=== PATIENT | male | born 1975 | race Caucasian/White ===

== ENCOUNTER 2021-10-02 05:32 | Inpatient (IN) | payer OTHER ==
[2021-10-02] MEDS ORDERED: Morphine 4 MG/ML VIAL ONE (06:09)
[2021-10-02 06:19] LABS: #Eosinphils 0.2 thou/uL (0.0-0.7); #Lymphocytes 1.4 thou/uL (1.20-3.40); #Monocytes 1.5 thou/uL (0.11-0.59); #Neutrophils 8.3 thou/uL (1.40-6.50); %Basophils 0.4 % (0.0-1.0); %Eosinophils 1.8 % (0.0-10.0); %Lymphocytes 12.4 % (21.0-51.0); %Monocytes 13.1 % (0.0-10.0); %Neutrophils 72.3 % (42.0-75.0); Hemoglobin 14.1 g/dL (14.0-18.0); Mean Corpuscular HGB CONC 33.2 g/dL (32.0-36.0); Mean Corpuscular Hemoglobin 30.9 pg (27.0-31.0); Mean Corpuscular Volume 93.2 fL (78.0-98.0); Platelet Count 212 thou/uL (130-400); Red Blood Cell (RBC) Count 4.57 mill/uL (4.70-6.10); White Blood Cell (WBC) Count 11.5 thou/uL (4.8-10.8)
[2021-10-02 06:54] LABS: ALT (SGPT) 30 U/L (8-55); AST (SGOT) 23 U/L (5-34); Albumin 4.2 g/dL (3.5-5.0); Alkaline Phosphatase 57 U/L (40-110); Anion Gap 14 mmol/L (10-20); BUN (Urea Nitrogen) 23 mg/dL (8.9-20.6); Bilirubin, Total 1.4 mg/dL (0.2-1.2); CK (CPK) 168 U/L (30-200); Calc. Creatinine Clearance 0 mL/min (70-130); Calcium 9.1 mg/dL (7.8-10.44); Carbon Dioxide 22 mmol/L (22-29); Chloride 105 mmol/L (98-107); Estimated GFR 108; Globulin 3.8 g/dL (2.4-3.5); Glucose 98 mg/dL (70-105); Lipase 9 U/L (8-78); Potassium 3.8 mmol/L (3.5-5.1); Sodium 137 mmol/L (136-145)
[2021-10-02] MEDS ORDERED: Fentanyl 100 MCG/2 ML VIAL ONE (07:44)
[2021-10-02] MEDS ORDERED: Enoxaparin Sodium 80 MG/0.8 ML SYRINGE ONE (08:10)
[2021-10-02 09:50] LABS: Troponin I Less than 0.010 ng/mL (< 0.028)
[2021-10-02] MEDS ORDERED: Ondansetron PF 4 MG/2 ML Vial IVP PRN (10:55)
[2021-10-02] MEDS ORDERED: Ondansetron ODT 4 MG TAB PO PRN (10:55)
[2021-10-02] MEDS ORDERED: Enoxaparin Sodium 120 MG/0.8 ML SYRINGE SC SCH (11:15)
[2021-10-02] MEDS ORDERED: Ketorolac Tromethamine 30 MG/ML VIAL IVP PRN (11:41)
[2021-10-02] MEDS ORDERED: Ketorolac Tromethamine 30 MG/ML VIAL IVP SCH (11:45)
[2021-10-02 11:49] VITALS: BMI 38.3
[2021-10-02] MEDS ORDERED: Enoxaparin Sodium 80 MG/0.8 ML SYRINGE SC SCH (12:15)
[2021-10-02] MEDS ORDERED: Iopamidol-370 76% 500 ML 1 ML ONE (12:51)
[2021-10-02 13:16] LABS: Troponin I Less than 0.010 ng/mL (< 0.028)
[2021-10-02] MEDS: Enoxaparin Sodium 80 MG/0.8 ML SYRINGE SC SCH (20:18)
[2021-10-03] MEDS: Acetaminophen 325 MG TAB PO PRN ×2 (00:30→08:29)
[2021-10-03 05:31] LABS: Anion Gap 15 mmol/L (10-20); BUN (Urea Nitrogen) 16 mg/dL (8.9-20.6); Calc. Creatinine Clearance 279 mL/min (70-130); Calcium 8.9 mg/dL (7.8-10.44); Carbon Dioxide 21 mmol/L (22-29); Chloride 105 mmol/L (98-107); Estimated GFR 113; Glucose 109 mg/dL (70-105); Sodium 137 mmol/L (136-145)
[2021-10-03 06:22] LABS: Band 2 % (5-11); Eosinophils 1 % (0-10); Hemoglobin 13.1 g/dL (14.0-18.0); Lymphocytes 13 % (21-51); MDiff Complete? YES; Mean Corpuscular HGB CONC 33.2 g/dL (32.0-36.0); Mean Corpuscular Hemoglobin 31.5 pg (27.0-31.0); Mean Corpuscular Volume 94.9 fL (78.0-98.0); Mean Platelet Volume 8.1 fL (7.4-10.4); Monocytes 13 % (0-10); Neutrophil 71 % (42-75); Platelet Count 199 thou/uL (130-400); Platelet Morphology Comment Appears Adequate; RBC Morphology Normal; Red Blood Cell (RBC) Count 4.16 mill/uL (4.70-6.10); White Blood Cell (WBC) Count 12.2 thou/uL (4.8-10.8)
[2021-10-03] MEDS: Enoxaparin Sodium 80 MG/0.8 ML SYRINGE SC SCH (08:30)
[2021-10-03 12:52] VITALS: BP 160/93; TEMP 98.2
== END 2021-10-03 12:10 | disposition home or self-care (01) | DRG 301 ==
LOC: ERS 05:32 → 2SW 08:07
PROVIDERS: ADMIT Internal Medicine; ATTEND Internal Medicine
DX: T81.718A Complication of other artery following a procedure, not elsewhere classified, initial encounter (principal); I26.99 Other pulmonary embolism without acute cor pulmonale; F17.220 Nicotine dependence, chewing tobacco, uncomplicated; E66.01 Morbid (severe) obesity due to excess calories; Y83.8 Other surgical procedures as the cause of abnormal reaction of the patient, or of later complication, without mention of misadventure at the time of the procedure; Z68.38 Body mass index [BMI] 38.0-38.9, adult; Z98.890 Other specified postprocedural states; Z88.0 Allergy status to penicillin; Z71.6 Tobacco abuse counseling; Z88.2 Allergy status to sulfonamides; Z79.899 Other long term (current) drug therapy
CPT/HCPCS: 36415; 71275; 80048; 80053; 82550; 83690; 83880; 84484; 85025; 93005; 96361; 96372; 96374; 96375; J1650; J1885; J2270; J3010; Q9967